=== PATIENT | female | born 1990 | race Caucasian/White ===

== ENCOUNTER 2022-01-09 08:34 | Emergency (ER) | payer OTHER, SELFPAY ==
--- NOTE | ~2022-01-09 | CT_ITS ---
EXAMINATION: CT abdomen pelvis wo con DATE: 01/09/2022 11:15 INDICATION: Constipation for one month. Abdominal pain, nausea TECHNIQUE: Computed tomography (CT) of the abdomen and pelvis was performed without intravenous contr ast. Automated exposure control and iterative reconstruction technique were employed. Exam dose: 437 .55 mGy-cm total exam DLP. COMPARISON: None. FINDINGS: The lung bases are clear. Normal heart size. No pericardial or pleural effusion. The liver, gallbladder, bile ducts, spleen, pancreas, pancreatic duct, and adrenal glands and kidneys are unremarkable. No urinary tract calculus or hydroureteronephrosis. The urinary bladder is unremar kable. There is an IUD within the uterus. The adnexal areas are unremarkable. Normal caliber of the abdominal aorta. No intraperitoneal or retroperitoneal or pelvic mass lesion or adenopathy or ascites. Normal appendix. There is a prominent amount of fecal material and gas within the colon but no bowel obstruction. No i ntraperitoneal free air. Moderate sized fat-containing umbilical hernia. Included skeletal structures are unremarkable. IMPRESSION: Mildly prominent amount fecal material within the colon but no bowel obstruction Normal appendix IUD within uterus Reviewed, dictated and finalized at [facility]. Reviewed, dictated and finalized at [facility]. IMPRESSION: Mildly prominent amount fecal material within the colon but no bow el obstruction Normal appendix IUD within uterus
[2022-01-09 08:37] VITALS: BP 102/66; PULSE 82; RESP 16; TEMP 36.1; O2SAT 99
[2022-01-09 10:34] LABS: Basophils Percent Auto 0.3 % (0.2-1.2); Eosinophils Absolute Auto 0.2 K/mm3 (0-0.3); Eosinophils Percent Auto 2.8 % (0-4.4); Hemoglobin 12.5 g/dL (12.0-15.0); Immature Granulocyte Absolute 0.02 K/mm3 (0.00-0.031); Immature Granulocyte Percent A 0.3 % (0-0.5); Lymphocytes Absolute Auto 2.74 K/mm3 (0.9-3.2); Lymphocytes Percent Auto 39.8 % (18.3-44.2); Mean Corpuscular HGB Conc 32.1 g/dl (32-36); Mean Corpuscular Hemoglobin 28.7 pg (26-34); Mean Corpuscular Volume 89.7 fl (80-100); Monocytes Absolute Auto 0.7 K/mm3 (0.1-0.6); Monocytes Percent Auto 10.4 % (2.6-8.5); Neutrophils Absolute Auto 3.2 K/mm3 (1.3-6.7); Neutrophils Percent Auto 46.4 % (45.5-73.1); Platelet Count Result 228 k/mm3 (150-375); Red Blood Count 4.35 M/mm3 (4.2-5.4); Red Cell Distribution Width 12.3 % (11.5-14.5); White Blood Count 6.9 K/mm3 (4.5-10.0)
[2022-01-09 10:35] LABS: Appearance Urine Clear (Clear); Bilirubin Urine Negative (Negative); Blood Urine Negative (Negative); Color Urine Yellow (Yellow); Glucose Urine UA Negative (Negative); Ketones Urine Negative (Negative); Leukocyte Esterase Ur Negative LEU/UL (Negative); Nitrate Urine Negative (Negative); Protein Urine Negative (Negative); Specific Grav Ur 1.015 (1.001-1.035); Urobilinogen Urine 0.2 mg/dL (<2.0); pH Urine 8.5 (5.0-9.0)
[2022-01-09 10:40] LABS: Bacteria Urine Trace /hpf; Mucus Urine Rare /lpf; RBC Urine 0-2 /hpf (0-2); Squamous Epithelial Cell Urine Rare /hpf (Few); WBC Urine 0-3 /hpf
[2022-01-09 10:43] LABS: Add Urine Microscopic? YES; Alanine Aminotransferase 36 U/L (6-35); Albumin Level 4.2 g/dL (3.5-5.1); Alkaline Phosphatase 82 U/L (38-126); Anion Gap 7 mmol/L (8-16); Aspartate Amino Transferase 41 U/L (14-36); Bilirubin,Total 0.5 mg/dL (0.2-1.3); Blood Urea Nitrogen 9 mg/dL (7-17); Calcium 8.6 mg/dL (8.4-10.2); Carbon Dioxide 30 mmol/L (22-30); Chloride 97 mmol/L (98-107); Estimated Glomerular Filt Rate > 60; Glucose 71 mg/dL (65-110); Lipase 26 U/L (23-300); Potassium 4.2 mmol/L (3.4-5.0); Sodium 134 mmol/L (137-145)
[2022-01-09 11:03] LABS: Pregnancy On Board Control Positive; Urine Pregnancy Test Negative
--- NOTE | 2022-01-09 11:59 | ED.ABDPAIN ---
HPI - Abdominal Pain General Chief Complaint: Abdominal Pain Stated Complaint: constipation, Time Seen by Provider: 01/09/22 09:36 History of Present Illness HPI narrative: 31yoF p/w constipation, she does take high dose methadone and has been dealing with constipation for some time. Has tried enemas with minimal improvement; also very minimal abd pain or nausea. Related Data Home Medications Medication Instructions Recorded Confirmed methadone 40 mg soluble tablet 180 mg PO DAILY 01/09/22 Allergies Allergy/AdvReac Type Severity Reaction Status Date / Time azithromycin Allergy Unknown Verified 10/20/18 23:58 cefaclor Allergy Unknown Verified 10/20/18 23:58 diphenhydramine Allergy Unknown Verified 10/20/18 23:58 erythromycin base Allergy Unknown Anaphylactic Verified 10/20/18 23:58 Shock haloperidol Allergy Unknown Verified 10/20/18 23:58 quetiapine Allergy Unknown Verified 10/20/18 23:58 clindamycin AdvReac Mild Nausea and Verified 10/20/18 23:58 Vomiting Review of Systems Review of Systems: CONST: No fever. HEENT: No sore throat C/V: No chest pain RESP: No cough GI: Constipation : No dysuria. M/S: No joint pain. SKIN: No rash. NEURO: [No headache or focal numbness or weakness] PSYCH: [No depression] [facility] Past Medical History Medical History (Updated 01/09/22 @ 18:24 by Anne Fraser MD) Constipation Social History Social History (Updated 01/09/22 @ 18:24 by Anne Fraser MD) Substance use: former Course Vital Signs Vital signs: Vital Signs Temperature 97.0 F L 01/09/22 08:37 Pulse Rate 82 01/09/22 08:37 Respiratory Rate 16 01/09/22 08:37 Blood Pressure 102/66 01/09/22 08:37 Pulse Oximetry 99 01/09/22 08:37 Oxygen Delivery Room Air 01/09/22 08:37 Temperature 97.0 F L 01/09/22 08:37 Pulse Rate 66 01/09/22 13:07 Respiratory Rate 18 01/09/22 13:07 Blood Pressure 112/70 01/09/22 13:07 Pulse Oximetry 99 01/09/22 13:07 Oxygen Delivery Room Air 01/09/22 08:37 MDM - Abdominal Pain MDM Narrative Medical decision making narrative: Patient presents with constipation likely methadone induced, vital stable, exam shows soft abdomen that is nontender to palpation, she would like a CT to rule out obstruction. This is ordered and negative for obstruction, I have offered her a dose of methylnaltrexone which she declined. [facility] and [facility] for this medication and for stool softeners. Lab Data Result diagrams: 01/09/22 10:24 01/09/22 10:24 Labs: Lab Results 01/09/22 01/09/22 01/09/22 Range/Units 10:24 10:24 10:24 WBC 6.9 (4.5-10.0) K/mm3 RBC 4.35 (4.2-5.4) M/mm3 Hgb 12.5 (12.0-15.0) g/dL Hct 39.0 (37.0-47.0) % MCV 89.7 (80-100) fl MCH 28.7 (26-34) pg MCHC 32.1 (32-36) g/dl RDW 12.3 (11.5-14.5) % Plt Count 228 (150-375) k/mm3 MPV 9.0 (7.4-10.4) fl Immature Gran % (Auto) 0.3 (0-0.5) % Neut % (Auto) 46.4 (45.5-73.1) % Lymph % (Auto) 39.8 (18.3-44.2) % Beaver % (Auto) 10.4 H (2.6-8.5) % Eos % (Auto) 2.8 (0-4.4) % Baso % (Auto) 0.3 (0.2-1.2) % Lymph # (Auto) 2.74 (0.9-3.2) K/mm3 Beaver # (Auto) 0.7 H (0.1-0.6) K/mm3 Eos # (Auto) 0.2 (0-0.3) K/mm3 Baso # (Auto) 0.0 (0.0-0.1) K/mm3 Abs Immat Gran (auto) 0.02 (0.00-0.031) K/mm3 Absolute Neuts (auto) 3.2 (1.3-6.7) K/mm3 Absolute Nucleated RBC 0.0 (0.0-0.012) K/mm3 Nucleated RBC % 0.0 (0.0-0.2) % Sodium 134 L (137-145) mmol/L Potassium 4.2 (3.4-5.0) mmol/L Chloride 97 L (98-107) mmol/L Carbon Dioxide 30 (22-30) mmol/L Anion Gap 7 L (8-16) mmol/L BUN 9 (7-17) mg/dL Creatinine 0.70 (0.7-1.0) mg/dL Estim Creat Clear Calc Not Reportable Estimated GFR > 60 (59 - ) Glucose 71 (65-110) mg/dL Calcium 8.6 (8.4-10.2) mg/dL Total Bilirubin 0.5 (0.2-1.3) mg/dL AST 41 H
[2022-01-09 13:07] VITALS: BP 112/70; PULSE 66; RESP 18; O2SAT 99
== END 2022-01-09 13:08 | disposition home or self-care (01) ==
PROVIDERS: Physician Assistant; Emergency Provider Emergency Medicine
DX: K59.03 Drug induced constipation (principal); T40.3X5A Adverse effect of methadone, initial encounter; Z97.5 Presence of (intrauterine) contraceptive device
CPT/HCPCS: 36415; 74176; 80053; 81001; 81025; 83690; 85025; 99284